=== PATIENT | male | born 1945 | race American Indian/Alaskan Native ===

== ENCOUNTER 2017-04-21 19:47 | Emergency (ER) | payer OTHER, MEDICARE ==
[2017-04-21 20:45] LABS: Hematocrit 43.1 % (35.5-45.6); Hemoglobin 14.4 gm/dl (11.8-15.2); Mean Corpuscular HGB Conc 33 % (32-34); Mean Corpuscular Hemoglobin 28 pg (28-32); Mean Corpuscular Volume 85 fl (84-94); Platelet Count 105 K/mm3 (140-440); Red Blood Count 5.06 M/mm3 (3.65-5.03); Red Cell Distribution Width 13.8 % (13.2-15.2); White Blood Count 5.3 K/mm3 (4.5-11.0)
[2017-04-21 20:54] LABS: INR 1.01 (0.87-1.13)
[2017-04-21 20:55] LABS: Partial Thromboplastin Time 28.1 Sec. (24.2-36.6)
[2017-04-21 21:04] LABS: Anion Gap 16 mmol/L; Blood Urea Nitrogen 9 mg/dL (9-20); Calcium 9.8 mg/dL (8.4-10.2); Carbon Dioxide 27 mmol/L (22-30); Chloride 100.5 mmol/L (98-107); Glucose 99 mg/dL (75-100); Potassium 4.2 mmol/L (3.6-5.0); Sodium 139 mmol/L (137-145)
[2017-04-21 21:19] LABS: Basophils % (Manual) 0 % (0.0-1.8); Blastocytes % (Manual) 0 %
[2017-04-21 21:21] LABS: RBC Morphology Normal
[2017-04-21 21:22] LABS: Diff Status Complete; Platelet Estimate Consistent w Auto
[2017-04-21 21:31] LABS: Bilirubin,Urine NEG (Negative); Blood,Urine SM (Negative); Ketones,Urine NEG (Negative); Leukocyte Esterase,Urine NEG (Negative); Mucus,Urine FEW /HPF; Nitrite,Urine NEG (Negative); Protein,Urine <15 mg/dL mg/dL (Negative); WBC,Urine < 1.0 /HPF (0.0-6.0)
[2017-04-21] MEDS ORDERED: ZOFRAN IV ONE (23:15)
[2017-04-21] MEDS ORDERED: MORPHINE IV ONE (23:15)
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
[2017-04-22] MEDS ORDERED: ZOFRAN IV ONE ×2 (00:19→02:04)
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
[2017-04-22 01:31] VITALS: BP 110/69
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
== END 2017-04-22 02:25 | disposition home or self-care (01) ==
LOC: ED 19:47
DX: S20.211A Contusion of right front wall of thorax, initial encounter (principal); I10 Essential (primary) hypertension; R50.9 Fever, unspecified; E11.9 Type 2 diabetes mellitus without complications; M19.90 Unspecified osteoarthritis, unspecified site; Z85.118 Personal history of other malignant neoplasm of bronchus and lung; Z95.1 Presence of aortocoronary bypass graft; Z91.013 Allergy to seafood; Z91.041 Radiographic dye allergy status; Z79.82 Long term (current) use of aspirin; Z87.891 Personal history of nicotine dependence; V89.2XXA Person injured in unspecified motor-vehicle accident, traffic, initial encounter; Y93.89 Activity, other specified; Y99.9 Unspecified external cause status; Y92.410 Unspecified street and highway as the place of occurrence of the external cause
CPT/HCPCS: 36415; 71020; 71250; 74176; 80048; 81001; 85007; 85025; 85610; 85730; 96374; 96375; 96376; 99284; J2270; J2405

== ENCOUNTER 2019-11-24 12:57 | Emergency (ER) | payer MEDICARE ==
[~2019-11-24 12:57] MED LIST: EPINEPHrine 1:10,000 1 MG/10 ML SYRINGE ONE
--- NOTE | 2019-11-24 13:07 | Emergency Department Report ---
ED CPR HPI - General Chief Complaint: Cardiac Arrest/CPR Stated Complaint: CARDIAC ARREST Time Seen by Provider: 11/24/19 13:05 Source: EMS Mode of arrival: Stretcher Limitations: Other - History of Present Illness Initial Comments: This is a 74-year-old man who was found by medics in cardiac arrest. The patient was intubated. He had the insertion of a left EJ catheter. He was found in pulseless electrical activity on medic arrival. told medics that the patient had been diagnosed with pneumonia. The COVID-19 status of the patient is yet unknown. He was given 4 rounds of epinephrine with continuous CPR prior to arrival in the emergency department. Resuscitative efforts were prolonged likely greater than 15 minutes. There was no return of spontaneous circulation whatsoever. The patient remained in PEA. Medics stated that when the patient's heart rate was 39 they attempted transdermal pacing. This did not generate a pulse and was discontinued. Review of records indicates that the patient was diabetic and has an AICD. MD Complaint: found unresponsive Place: home Bystander CPR Performed: No Treatments Prior to Arrival: intubation, other airway device, epinephrine mgs # - Related Data Home Medications Medication Instructions Recorded Confirmed Last Taken Albuterol Sulfate [Proair Hfa] 2 puff INHALATION BID PRN 04/15/16 05/14/16 05/19/16 Aspirin [Aspirin BABY CHEW TAB] 81 mg PO QDAY 04/15/16 05/14/16 05/19/16 Carvedilol 12.5 mg PO BID 04/15/16 05/20/16 05/20/16 05:30 Ciprofloxacin (Nf) [Ciprofloxacin 1 drop OU QID 04/15/16 05/20/16 05/20/16 07:00 HCl 0.3%] Ezetimibe [Zetia] 10 mg PO QDAY 04/15/16 05/14/16 05/19/16 Fluticasone/Salmeterol [Advair 1 each IH QDAY PRN 04/15/16 05/20/16 05/20/16 05:30 100-50 Diskus] Folic Acid 1 mg PO QDAY 04/15/16 05/14/16 05/19/16 Furosemide [Lasix] 20 mg PO BID 04/15/16 05/14/16 05/19/16 Pantoprazole Sodium 40 mg PO QDAY 04/15/16 05/14/16 05/19/16 Potassium Chloride [Klor-Con 10] 10 meq PO QDAY 04/15/16 05/14/16 05/19/16 Pregabalin [Lyrica] 75 mg PO Q12H 04/15/16 05/14/16 05/19/16 Simvastatin 40 mg PO QHS 04/15/16 05/14/16 05/19/16 Spironolactone Tab [Aldactone Tab] 25 mg PO QDAY 04/15/16 05/20/16 05/19/16 Previous Rx's Medication Instructions Recorded Last Taken Type traMADoL [Ultram] 50 mg PO Q6HR PRN #20 tablet 04/22/17 Unknown Rx Allergies Allergy/AdvReac Type Severity Reaction Status Date / Time Iodine and Iodide Containing Allergy Severe Swelling Verified 05/20/16 09:06 Produc shrimp Allergy Severe Swelling Verified 05/20/16 09:06 ED Review of Systems ROS: Stated complaint: CARDIAC ARREST Other details as noted in HPI ED Past Medical Hx - Past Medical History Hx Hypertension: Yes (x 7-8 years) Hx Congestive Heart Failure: Yes Hx Diabetes: Yes (x 2 years) Hx Arthritis: Yes Hx COPD: Yes (O2 at night) Hx Tuberculosis: Yes - Surgical History Hx Coronary Stent: Yes (1988) Hx Internal Defibrillator: Yes - Social History Smoking Status: Former Smoker Substance Use Type: None - Medications Home Medications: Home Medications Medication Instructions Recorded Confirmed Last Taken Type Albuterol Sulfate [Proair Hfa] 2 puff INHALATION BID PRN 04/15/16 05/14/16 05/19/16 History Aspirin [Aspirin BABY CHEW TAB] 81 mg PO QDAY 04/15/16 05/14/16 05/19/16 History Carvedilol 12.5 mg PO BID 04/15/16 05/20/16 05/20/16 05:30 History Ciprofloxacin (Nf) [Ciprofloxacin 1 drop OU QID 04/15/16 05/20/16 05/20/16 07:00 History HCl 0.3%] Ezetimibe [Zetia] 10 mg PO QDAY 04/15/16 05/14/16 05/19/16 History Fluticasone/Salmeterol [Advair 1 each IH QDAY PRN 04/15/16 05/20/16 05/20/16 05:30 History 100-50 Diskus] Folic Acid 1 mg PO QDAY 04/15/16 05/14/16 05/19/16 History Furosemide [Lasix] 20 mg PO BID 04/15/16 05/14/16 05/19/16 History Pantoprazole Sodium 40 mg PO QDAY 04/15/16 05/14/16 05/19/16 History Potassium Chloride [Klor-Con 10] 10 meq PO QDAY 04/15/16 05/14/16 05/19/16 History Pregabalin [Lyrica] 75 mg PO Q12H 04/15/16 05/14/16 05/19/16 History Simvastatin 40 mg PO QHS 04/15/16 05/14/16 05/19/16 History Spironolactone Tab [Aldactone Tab] 25 mg PO QDAY 04/15/16 05/20/16 05/19/16 History traMADoL [Ultram] 50 mg PO Q6HR PRN #20 tablet 04/22/17 Unknown Rx ED Physical Exam - General Limitations: Other General appearance: other - Head Head exam: Present: atraumatic - Eye Eye exam: Present: other (Fixed and dilated pupils) - ENT ENT exam: Present: other (Sabino air in place) - Neck Neck exam: Present: other (EJ catheter left) - Respiratory Respiratory exam: Present: other (Assisted ventilation produces bilateral breath sounds) - Cardiovascular Cardiovascular Exam: Present: other (No heart sounds) - GI/Abdominal GI/Abdominal exam: Present: soft. Absent: distended - Extremities Exam Extremities exam: Present: normal inspection - Neurological Exam Neurological exam: Present: other (GCS is 3) ED Course - Reevaluation(s) Reevaluation #1: Patient was given additional epinephrine. Monitor showed what appeared to be possibly pacemaker spikes but not good complexes. A Doppler exam was performed. There was no evidence of spontaneous circulation. Being that further resuscitative efforts were futile the patient was pronounced. The family will be counseled. 11/24/19 13:10 Critical care attestation.: If time is entered above; I have spent that time in minutes in the direct care of this critically ill patient, excluding procedure time. ED Disposition Clinical Impression: Cardiac arrest Disposition: DC-20 Is pt being admited?: No Does the pt Need Aspirin: No Condition: Stable Referrals: PRIMARY CARE, [Primary Care Provider] - 3-5 Days Time of Disposition: 13:11
== END 2019-11-24 16:22 ==
LOC: ED 12:57
DX: I46.9 Cardiac arrest, cause unspecified (principal); I11.0 Hypertensive heart disease with heart failure; I50.9 Heart failure, unspecified; M19.90 Unspecified osteoarthritis, unspecified site; E11.9 Type 2 diabetes mellitus without complications; J44.9 Chronic obstructive pulmonary disease, unspecified; Z87.891 Personal history of nicotine dependence; Z95.818 Presence of other cardiac implants and grafts; Z79.899 Other long term (current) drug therapy
CPT/HCPCS: 31500; 92950; 99285; J0171